=== PATIENT | female | born 1995 | race Caucasian/White ===

== ENCOUNTER 2018-10-07 23:32 | Observation (INO) | payer BC ==
[2018-10-07] MEDS ORDERED: NS 1,000 ML IV ONE (23:43)
--- NOTE | 2018-10-07 23:43 | EDPHY ---
H & P Stated Complaint: Syncopal episode twice at home, hit head Source: Patient Exam Limitations: No limitations - Personal History LMP (Females 10-55): 8-14 Days Ago Current Tetanus Diphtheria and Acellular Pertussis (TDAP): Yes - Medical/Surgical History Hx Asthma: No Hx Chronic Respiratory Disease: No Hx Diabetes: No Hx Cardiac Disease: No Hx Renal Disease: No Hx Cirrhosis: No Hx Alcoholism: No Hx HIV/AIDS: No Hx Splenectomy or Spleen Trauma: No Other PMH: Denies - Social History Smoking Status: Never smoked Time Seen by Provider: 10/07/18 23:39 HPI/ROS: 0139: Patient here for syncope. At this time was noted on her monitor heart rate went down to 30. This was captured on the monitor with rhythm strip a bradycardia. She was lying in bed resting when this happen. It recovered on its own and she is now 78 without any complaints. I notified the hospitalist service about the bradycardia. Will admit on telemetry monitoring. Dr. Martinez notified of the bradycardia recovered on its own. (Liam Bang) HPI: This is a 23-year-old female who presents with Chief Complaint: Syncopal episode twice at home, hit head Location: body Quality: Passed out x2 Duration: Lasting several seconds Signs and Symptoms: no fever, no nausea, no vomiting, no photophobia, no noise sensitivity, no neck stiffness, no ear pain, no tinnitus, no nasal congestion, no sinus pressure, no weakness, no radiation, no aura Timing: Acute, intermittent episodes Severity: Moderate Context: Patient is generally healthy, student at [employer], presents with sitting in her room around 8:00 p.m. This evening and started to feel dizzy and lightheaded. She reports that it lasted only a few seconds and then resolved. Then around 11:00 p.m. She was sitting at a bar drinking and alcoholic beverage x1 when she started to feel dizzy and lightheaded again. Friend at bedside reports that she slumped towards the right side and then fell off the stool. He reports that she was helped to the ground but did hit her head on the ground. Patient reports mild, constant, nonradiating pain in the right temporal area. She complains of a 6/10 headache. Not the worse headache of her life and no thunderclap symptoms. Friend reports that she was"out of it for a few seconds but then came around." Denies any seizure activity, tongue biting, incontinence. Patient reports that she ate and drank normally today. She reports that when she was younger she had a similar incidents of"passing out and went to the emergency room and and she was told that it was stressed. Denies any drug use. Patient denies any fever, cough, palpitations, lower extremity edema. No recent long distance travel. Modifying Factors: None Comment: ROS: A comprehensive 10 system review of systems is otherwise negative aside from elements mentioned in the history of present illness. MEDICAL/SURGICAL/SOCIAL HISTORY: Medical history: Generally healthy. Takes oral control pills. LMP 1-2 weeks ago. Surgical history: Denies Social history: Nonsmoker. Student at [employer]. Family history noncontributory. CONSTITUTIONAL: Extremely polite and cooperative young adult white female, awake and alert, no obvious distress HEENT: Small contusion noted in the right parietal scalp no active bleeding; no step-off and normocephalic, PERRL, EOMI. Nares patent; no rhinorrhea; no nasal mucosal edema. Tympanic membranes clear. Oropharynx clear, no exudate and moist pink mucosa. Airway patent. No lymphadenopathy. No meningismus. Cardiovascular: Normal S1/S2, regular rate, regular rhythm, without murmur rub or gallop. PULMONARY/CHEST: Symmetrical and nontender. Clear to auscultation bilaterally. Good air movement. No accessory muscle usage. ABDOMEN: Soft, nondistended, nontender, no rebound, no guarding, no peritoneal signs, no masses or organomegaly. No CVAT. EXTREMITIES: 2/2 pulses, strength 5/5, no deformities, no clubbing, no cyanosis or edema. NEUROLOGICAL: no focal neuro deficits. GCS 15. Cranial nerves 2-12 grossly intact. Normal xlkqid-dc-vlqw testing. Normal jsmm-vx-llhz testing. Speech normal. No reproduction of dizziness with Kadeem-Hallpike maneuver. SKIN: Warm and dry, no erythema. no rash. Good capillary refill. (Emi Alvarado) Constitutional: Initial Vital Signs Temperature (C) 36.8 C 10/07/18 23:34 Heart Rate 77 10/07/18 23:34 Respiratory Rate 17 10/07/18 23:34 Blood Pressure 107/75 10/07/18 23:34 O2 Sat (%) 99 10/07/18 23:34 O2 Delivery Mode Room Air Allergies/Adverse Reactions: No Known Allergies Allergy (Verified 10/08/18 08:51) Home Medications: Medication Instructions Recorded Herbals/Supplements -Info Only 1 ea PO DAILY 10/08/18 Ibuprofen [Motrin (*)] 200 mg PO DAILY PRN 10/08/18 Norethindrone-Ethinyl Estrad 1 each PO HS 10/08/18 [Cyclafem] Acetaminophen [Tylenol 325mg (*)] 650 mg PO Q4HRS PRN tab 10/09/18 oxyCODONE IR [Oxycodone Ir (*)] 5 mg PO Q4HRS PRN #20 tab 10/09/18 Medical Decision Making - Diagnostics EKG Interpretation: 12 lead EKG: Indication: Syncope Rhythm: Normal sinus rhythm, rate of 69 beats per minute [place]: Normal Intervals: Normal QRS: Normal ST segments: Normal INTERPRETATION: No acute ischemic changes The 12 lead EKG was interpreted by myself and with attending. (Emi Alvarado) ED Course/Re-evaluation: Vital signs reviewed and stable upon arrival. Placed on occupational therapy specialist. IV access, laboratory studies, urinalysis, EKG ordered Given 2 L normal saline EKG my read with attending shows normal sinus rhythm with a rate of 69 beats per minute but no acute ischemic changes. 0020: Called by radiologist, Dr. Rich who reports head CT scan shows no acute intracranial process. Radiology report states equivocal right parietal vertex, linear skull fracture. Contusion noted on right parietal scalp. Cervical CT scan shows straightening of the lordosis but no acute fracture, disc herniation. 0026: Notified by RN that boyfriend stepped out of the room and said the patient passed out again RN was at bedside and noted patient was alert and oriented x 4 with stable vital signs and no seizure activity. 0044: Spoke with radiologist Dr. Wright regarding the head CT scanned and he reports that it is not depressed and likely a normal variant. He said go by clinical exam which shows a contusion. 0048: Labs reviewed. No signs of leukocytosis/anemia/platelet dysfunction/CRIS/ elevated LFTs/electrolyte imbalance//VTE ETOH=57 ED decision to consult for admission for syncope and collapse. Spoke with hospitalist Dr. Martinez who kindly agrees to admit patient to provide further care. This patient was seen under the supervision of my secondary supervising physician. I evaluated care for this patient with attending. Discussed this patient with Dr. Bang who did see the patient. (Emi Alvarado) Differential Diagnosis: Syncope including but not limited to vasovagal syncope, arrhythmia, dehydration , and blood loss. (Emi Alvarado) - Data Points Laboratory Results: Laboratory Results 10/08/18 00:02 10/08/18 00:02 Medications Given: Discontinued Medications Acetaminophen (Tylenol) 1,000 mg PO EDNOW ONE Stop: 10/08/18 01:21 Last Admin: 10/08/18 01:21 Dose: 1,000 mg Acetaminophen (Tylenol) 650 mg PO Q4HRS PRN PRN Reason: Pain, Mild/Fever, Can Take PO Stop: 04/06/19 01:23 Last Admin: 10/08/18 19:25 Dose: 650 mg Bacitracin (Bacitracin 1000 Ml Irrigation) 50,000 units IRR ONCALL ONE Stop: 10/08/18 13:24 Last Admin: 10/08/18 18:00 Dose: Not Given Sodium Chloride (Ns) 1,000 mls @ 0 mls/hr IV ONCE ONE; Wide Open PRN Reason: Protocol Stop: 10/07/18 23:44 Last Admin: 10/08/18 00:26 Dose: 1,000 mls Sodium Chloride (Ns) 1,000 mls @ 0 mls/hr IV EDNOW ONE; Wide Open PRN Reason: Protocol Stop: 10/08/18 00:21 Last Admin: 10/08/18 00:27 Dose: 1,000 mls Sodium Chloride (Ns) 75 mls @ 0 mls/hr IV EDNOW ONE; KVO PRN Reason: Protocol Stop: 10/08/18 01:44 Last Admin: 10/08/18 01:45 Dose: 75 mls Cefazolin Sodium/Dextrose (Ancef) 100 mls @ 200 mls/hr IV ONCALL ONE PRN Reason: Protocol Stop: 10/08/18 13:52 Last Admin: 10/08/18 17:59 Dose: Not Given Sodium Chloride (Ns) 1,000 mls @ 0 mls/hr IV ONCALL ONE PRN Reason: TKO Stop: 10/08/18 13:24 Last Admin: 10/08/18 17:59 Dose: Not Given Ondansetron HCl (Zofran) 4 mg IVP Q4HRS PRN PRN Reason: Nausea/Vomiting, Can't Take PO Stop: 04/06/19 01:23 Last Admin: 10/09/18 08:12 Dose: 4 mg Oxycodone HCl (Oxycodone Ir) 5 mg PO Q4HRS PRN PRN Reason: Pain, Severe Able to Take PO Stop: 10/18/18 21:00 Last Admin: 10/09/18 04:20 Dose: 5 mg Point of Care Test Results: Chemistry 10/08/18 00:05 POC Troponin I 0.00 ng/mL ng/mL (0.00-0.08) Departure - Departure Disposition: [facility] Inpatient Acute Clinical Impression: Syncope and collapse, Bradycardia Contusion of parietal region of scalp Qualifiers: Encounter type: initial encounter Qualified Code(s): S00.03XA - Contusion of scalp, initial encounter Condition: Fair
[2018-10-08] MEDS ORDERED: NS 1,000 ML IV ONE ×2 (00:20→13:23)
[2018-10-08 00:45] LABS: PLATELET COUNT 260 10^3/uL (150-400)
[2018-10-08] MEDS ORDERED: ACETAMINOPHEN 500 MG TAB ONE (01:19)
[2018-10-08] MEDS ORDERED: ACETAMINOPHEN 500 MG TAB PO ONE (01:20)
[2018-10-08] MEDS ORDERED: ONDANSETRON DISINTEGRATING 4 MG TAB PO PRN (01:24)
[2018-10-08] MEDS ORDERED: ACETAMINOPHEN 325 MG TAB PO PRN (01:24)
[2018-10-08] MEDS ORDERED: NS IV ONE (01:43)
--- NOTE | 2018-10-08 04:35 | GHP ---
DATE OF ADMISSION: 10/08/2018 CHIEF COMPLAINT: Syncope x3. HISTORY OF PRESENT ILLNESS: A 23-year-old student with no past medical history presenting with syncope. Was in her room this evening at 8 p.m. and started to feel dizzy and "weird" and then awoke on her bed, unclear if she fell asleep or passed out. At 11 p.m. she went out for a drink with a friend and had 1 alcoholic beverage and felt "pako vu" with dizziness and lightheadedness, and slumped forward hitting her knees and then her forehead on the ground per friend's report. Complains of pain in the right temporal region with some swelling. Had 3rd syncopal episode in ER. Denies prodromal chest pain , palpitations, blurred vision or SOB. Worked out this morning without issue and ate normal meals. Normally exercises 5-6 days a week lifting weights or 20 minutes or running with no symptoms. No infectious symptoms,illicit drugs, or supplements. No insect bites ( ie.rickettsial infections) Had 10 second pauses on telemetry in the ER briefly then syncope, return to heart rate 80s to 90s. Per Dr. Montesinos's report, she said she had "passing out" episodes when she was younger and was told due to stress. REVIEW OF SYSTEMS: I completed a 10-point review of systems, negative except as noted in HPI. PAST MEDICAL HISTORY: None. PAST SURGICAL HISTORY: [place] teeth. FAMILY HISTORY: Father with hypertension. No sudden cardiac . SOCIAL HISTORY: She is a senior at studying math and economics. Occasional alcohol. No illicits or tobacco. MEDICATIONS: control. ALLERGIES: None. PHYSICAL EXAMINATION: VITAL SIGNS: Temperature 36.9, blood pressure 117/74, heart rate is in the 80s, respiration 18, 99% on room air. GENERAL: She is sleeping, but no acute distress. HEENT: PERRLA. Moist mucous membranes. Lump right temporal region. CV: Regular rate and rhythm. LUNGS: Clear. ABDOMEN: Soft, nontender, nondistended. Positive bowel sounds. : No Milner. MUSCULOSKELETAL: 5/5 upper and lower extremity strength. NEURO: 2 through 12 intact. PSYCH: Alert and oriented x3. LABS: WBC 5, hemoglobin 14, hematocrit 42, platelets 260. D-dimer is negative. Sodium 138, potassium 4.1, chloride 105, carbon dioxide 21, creatinine 0.8, glucose 86. LFTs within normal. TSH is pending. Negative troponin. Urine is negative. Blood alcohol 57. Urine tox negative. Cervical spine CT: No fracture. Head CT: No intracranial process. EKG personally reviewed, first-degree block, normal sinus rhythm. ASSESSMENT AND PLAN: 1. Syncope: 3x today. Not on any offending medications, utox negative. Joshua to the 30s in the ER with sinus pauses. TSH, echo pending. Consult Cardiology in the morning. 2. Alcohol use: BAL elevated. Counseled on cessation. 3. Skull fracture: linear, which shouldn't require intervention. 4. Diet: Regular. 5. Deep vein thrombosis prophylaxis: Low risk. 6. Disposition: Warrants observation admission given bradycardia, syncope requiring cardiology evaluation. /[id number]/MODL MTDD
[2018-10-08] MEDS ORDERED: ATROPINE SULFATE 1 MG/10 ML SYR ONE (08:33)
[2018-10-08] MEDS: ONDANSETRON 4 MG/2 ML VIAL IVP PRN (08:57)
--- NOTE | 2018-10-08 11:10 | GHP ---
DATE OF ADMISSION: 10/08/2018 INDICATION FOR ADMISSION: Syncope. HISTORY OF PRESENT ILLNESS: The patient is a pleasant, 23-year-old female who is a senior at , who was in her usual state of health until last evening around 8 p.m. She had an episode of feeling diz zy which was followed by syncope. She states she woke up on her bed and was unsure of the events darshana ding up to how she ended up on her bed. Later that evening around 11 p.m., she went out for a drink with her boyfriend. She had 1 alcoholic beverage, and she states she felt "pako vu" and briefly felt dizzy. This was followed by a witnessed syncopal event. Her boyfriend who was with her reports that she was talking normally, followed by a sentence that did not make sense, followed by rapid eyes rolling back in her head, and followed by l oss of consciousness. Both patient and boyfriend state that from feeling normal at baseline to compl ete syncope was no greater than 4 seconds. When she awoke she states within a few seconds she felt b ack to baseline. Both patient and boyfriend state that she has had between 5 and 7 further syncopal episodes through the course of the evening. She presented to [facility] for further evaluation. While here in the ER on telemetry, she had another identical episod e while on quality assurance monitor body. She had a brief few seconds onset of dizziness, followed by syncope. Th e property assessment monitor demonstrated a 12-second pause associated with syncope. This was preceded by a s hort several second period of decline in heart rate with P waves and then asystole with no P waves. This was followed by a junctional escape beat and then rapid return to sinus rhythm at approximately 100 beats per minute. Mari states that approximately 3 years ago as a freshman at [employer], she had an episode of non prodromal syncope while brushing her teeth. She states she awoke on the bathroom floor with no evidence of trauma. She was admitted to a hospital in [place] where she underwent an evaluation on tel emetry and complete 2D echocardiogram. She had no further syncopal episodes and was discharged home. She states she has been in her usual state of health until last evening with onset of syncopal even ts. Mari is on no medications with the exception of control pills. She does not use illicit drugs or marijuana. Urine drug screen was negative. She has no history of recent viral illness. In the last year, she was in [facility] approximately 13 months ago. She was in [place] earlier this year. She has not traveled outside the country. Haroon carbone [place] She has no history of Lyme disease. She has no history of tick-borne illnesses. She has never trave led to [place]. She has no known history of sarcoidosis or inflammatory disease process. She has no family history of underlying conduction system disease. REVIEW OF SYSTEMS: Currently, at the time of my exam, she is resting comfortably without complaint A 10-point review of systems is negative with the exception of syncope. PAST MEDICAL HISTORY: None. PAST SURGICAL HISTORY: [facility] teeth. FAMILY HISTORY: Father with a history of hypertension approximately 10 years ago. She has 2 younger siblings who are alive and well. Her aunts and uncles are all healthy. No family history of conduc tion system disorders. No one noted in the family with a pacemaker. MEDICATIONS ON ADMISSION: control pill. ALLERGIES: To medications, none. PHYSICAL EXAMINATION: VITAL SIGNS: Blood pressure 116/75, respiratory rate of 16, oxygen saturation 97% on room air, temperature of 36.9. GENERAL: She is awake, alert, oriented, appropriate. No bienvenido arent distress. NECK: There is no evidence of JVP or carotid bruits. LUNGS: Clear to auscultation bilaterally. CARDIAC: Exam is S1, S2. Regular rate and rhythm. No murmurs, rubs, or gallops. PM I is not displaced. ABDOMEN: Soft, nontender, nondistended. There is no pulsatile mass or abdomina l bruit. EXTREMITIES: No evidence of cyanosis, clubbing or edema. ECG performed October 07, 2018, at 2344 demonstrates sinus rhythm at 69 beats per minute with borderl ine right axis deviation. QT corrected interval of 414 milliseconds. WI interval normal at [address] of the head demonstrates no evidence of cervical fracture or dislocation. There was a comment und er impression of equivocal right parietal vertex linear skull fracture. This has been reviewed by [facility], who felt that this was a non issue and that there was no true skull fracture and a normal variant. Telemetry monitoring demonstrates sinus rhythm with a rapid decline in heart rate, followed by 12 sec onds of asystole, followed by junctional escape beat associated with syncope. She had a second pause as well with again rapid decline in sinus rhythm, followed by asystole. LABORATORY DATA: 1. White blood cell count 5.6, hemoglobin 14.2, hematocrit 42.9, platelets 260. 2. Comprehensive metabolic panel is normal. Glucose 86. TSH 5.74. Beta HCG negative. D-dimer neg ative at less than 0.27. Troponin negative at less than 0.012. 3. Urine drug screen negative. ETOH 57. The patient admits to a single alcoholic beverage. This i s corroborated by her boyfriend. IMPRESSION: The patient is a pleasant, 23-year-old, healthy, physically fit, [facility] [employer] student who is studying economics and math. She has a job with a [employer] waiting for her [employer] n she graduates from [employer] later this year. She has had multiple syncopal episodes since 8 p.m. last evening. Witnessed syncopal event on telemetry with a sinus arrest with 12-second pause associated with syncope. She does have a history of a non prodromal syncopal event 3 years ago with a negative workup. She has no exposures to tick-borne illnesses or any indication of underlying illnesses that could darshana d to conduction system abnormality such as sarcoidosis. Would recommend patient be admitted to the telemetry service with plan for complete 2D echocardiogram to be performed this morning. 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 I think her episode in 2014 w as her initial event. With witnessed syncope documented on telemetry of over 12 seconds with no rehan r underlying etiology, would recommend patient proceed with pacemaker. We will plan for consultation with Dr. De La Cruz for further evaluation. PLAN: 1. Admit to telemetry. 2. Pacer pads in place. 3. Atropine at bedside. 4. EP consultation today for pacemaker implantation. 5. Echocardiogram to be completed. 6. I have spoken at detail with the patient as well as both her parents regarding my concerns and fi ndings. /[id number]/MODL
--- NOTE | 2018-10-08 12:27 | ECHO ---
[email or web address] [address] [address] Main: [phone] Fax: [email or web address] Echocardiogram Name: RICHARD MCKINNON MR#: [id number] Study Date: 10/08/2018 Study Time: 10:43 AM Date of : 1995 Age: 23 year(s) Height: 172.7 cm (68 in.) Weight: 61.24 kg (135 lb.) BSA: 1.73 m2 Gender: Female Examination: Echo Indication: syncope X3; 12 second pause Image Quality: Adequate Contrast: Requested by: Kanika Martinez BP: 116 mmHg/65 mmHg Heart Rate: Rhythm: Indication: syncope X3; 12 second pause Procedure Staff Child Welfare Counselor: Darcy Crain [facility] Reading Physician: Lio Viera MD Requesting Provider: Conclusions: Normal size left ventricle. No LV hypertrophy. Normal global systolic LV function. EF is 62 %. No regional wall motion abnormality. Normal diastolic LV function. Normal size right ventricle. Normal RV function. The left atrium is normal in size. Normal appearing atrial septum. The right atrium is normal in size. The mitral valve is normal in appearance. The aortic valve is tri-leaflet. The tricuspid valve is normal in appearance and function. Normal size and course of the IVC. No pericardial effusion. Measurements: Chambers Valvular Assessment AV/MV Valvular Assessment TV/PV Normal Normal Normal Name Value Range Name Value Range Name Value Range Ao Bonnie (MM): 3.0 cm (2.2 cm-3.7 AV Vmax: 1.18 m/s (1 m/s-1.7 PV Vmax: 0.88 m/s (0.6 m/s-0.9 cm) m/s) m/s) IVSd (2D): 0.6 cm (0.6 cm-1.1 AV maxP mmHg ( - ) PV PGmax: 3 mmHg ( - ) cm) LVOT Vmax: 0.85 m/s (0.7 m/s-1.1 LVDd (2D): 4.3 cm (3.9 cm-5.3 m/s) cm) MV E Vmax: 0.91 m/s ( - ) LVDs (2D): 2.8 cm (2.1 cm-4 MV A Vmax: 0.65 m/s ( - ) cm) MV E/A: 1.40 ( - ) LVPWd (2D): 0.7 cm ( - ) Patient: RICHARD MCKINNON Study Date: 10/08/2018 Page 1 of 2 10:43 AM LVEF (BP): 62 % (>=55 %) RVDd(2D): 3.0 cm (1.9 cm-3.8 cmmm) Continued Measurements: Chambers Valvular Assessment AV/MV Name Value Name Value LADs: 2.5 cm MV DecTime: 208 m/s LADs Lon.8 cm MV E/E' Septal: 9.80 LA Area: 15.4 cm2 MV E/E' Lateral: 4.90 LA Volume: 43 ml LA Volume Index: 24.9 ml/m2 TAPSE: 2.0 cm RA Area: 10.0 cm2 Additional Vessels Name Value Ao Ascendin.6 cm Findings: Left Ventricle: Normal size left ventricle. No LV hypertrophy. Normal global systolic LV function. EF is 62 %. No regional wall motion abnormality. Normal diastolic LV function. Right Ventricle: Normal size right ventricle. Normal RV function. Left Atrium: The left atrium is normal in size. Normal appearing atrial septum. Right Atrium: The right atrium is normal in size. Mitral Valve: The mitral valve is normal in appearance. Trivial mitral valve regurgitation. No mitral stenosis is present. Aortic Valve: The aortic valve is tri-leaflet. There is no aortic valve regurgitation. No aortic valve stenosis is present. Tricuspid Valve: The tricuspid valve is normal in appearance and function. Trivial tricuspid valve regurgitation. Pulmonary artery pressure is not obtained due to inadequate TR jet. Pulmonic Valve: The pulmonic valve is normal in appearance. There is no pulmonic regurgitation seen. Aorta: Normal size aortic root measuring 3.0 cm. Normal size ascending aorta measuring 2.6 cm. IVC: Normal size and course of the IVC. Pericardium: No pericardial effusion. (No Signature Object) Patient: RICHARD MCKINNON Study Date: 10/08/2018 Page 2 of 2 10:43 AM [id number]
--- NOTE | 2018-10-08 13:01 | HOSPPROG ---
Hospitalist Progress Note Assessment/Plan: 23-year-old female with no past medical history admitted after numerous syncopal episodes and noted to have a 12 second pause on telemetry Syncope- I discussed the case with Cardiology. Appears plan is for pacer placement. I reviewed her telemetry strip which shows a 10-12 second pause. Labs and exam are unremarkable. -pacer pads at bedside -atropine if needed -cardiology to see -telemetry prophylaxis- SCDs, ambulate Fluids- NPo, IV saline Lytes- WNL Nutrition- NPO Cor- Full Dispo- observation ICU for syncope I spent over 35 minutes of critical care time on the management of this patient with over half spent on direct patient care. Subjective: feels fine currently. No chest pain. or other complaints. Objective: Vital Signs Temp Pulse Resp BP Pulse Ox 36.9 C 74 13 102/63 98 10/08/18 11:22 10/08/18 12:00 10/08/18 12:00 10/08/18 12:00 10/08/18 12:00 - Physical Exam Constitutional: no apparent distress, appears nourished, not in pain Eyes: PERRL, anicteric sclera, EOMI Ears, Nose, Mouth, Throat: moist mucous membranes, hearing normal, ears appear normal, no oral mucosal ulcers Cardiovascular: regular rate and rhythym, no murmur, rub, or gallop Respiratory: no respiratory distress, no rales or rhonchi, clear to auscultation Gastrointestinal: normoactive bowel sounds, soft, non-tender abdomen, no palpable masses Genitourinary: no bladder fullness, no bladder tenderness, no renal bruits Skin: no rashes or abrasions, no fluctuance, no induration Musculoskeletal: full muscle strength, no muscle tenderness, normal joint ROM Neurologic: AAOx3, sensation intact bilaterally Psychiatric: interacting appropriately, not anxious, not encephalopathic, thought process linear Lymph, Heme, Immunologic: no cervical LAD, no supraclavicular LAD ICD10 Worksheet Patient Problems: Problems Problem Status Onset Bradycardia Acute Contusion of parietal region of scalp Acute Syncope and collapse Acute
--- NOTE | 2018-10-08 13:22 | PDGENHP ---
History & Physical Chief Complaint: Recurrent syncope associated with pauses up to 12 seconds History of Present Illness: First episode of syncope occurring 3 years ago. No recurrence until last night. Since then, she has experienced 7-8 syncopal events preceeded by roughly 4 seconds of lightheadedness and "pako vu." Telemetry during these events demonstrates a rapid decline in HR followed by asystole up to 12 seconds followed by a junctional escape rhythm and return to NSR. She has otherwise been in her usual state of health without identifiable reversible causes of her symptoms (see full H&P). Relevant Physical Exam: General: A&Ox4, no apparent distress. Respiratory: CTA. Cardiac: Regular rate and rhythm, S1, S2, external pacer pads in place Cardiorespiratory Assessment: Risks and benefits of dual-chamber PPM reviewed in detail with patient and her family. Alternative options include watchful waiting vs. medical management of her symptoms. Mari and her parents would like to proceed with PPM implant today.
[2018-10-08] MEDS ORDERED: BACITRACIN IRRIGATION/NS 50,000 UNITS/1,000 ML BTL IRR ONE (13:23)
[2018-10-08] MEDS ORDERED: ceFAZolin 2 GM/DEXTROSE 100 ML IV ONE (13:23)
--- NOTE | 2018-10-08 14:16 | GCON ---
CONSULTATION/HISTORY AND PHYSICAL DATE OF CONSULTATION: 10/08/2018 Patient seen in the emergency department in room 6 at 0934 on 10/08/2018. CHIEF COMPLAINT: Syncope. HISTORY OF PRESENT ILLNESS: The patient is a 23-year-old female who is a senior at the [employer]. She was in her usual state of health until last evening about 8 p.m. She had an episode where she was feeling dizzy. It was followed by an episode of syncope. She woke up on her b ed and was unsure of the events leading up to how she ended up there. Later last evening at about 11 p.m., she went for a drink with her boyfriend. She had 1 alcoholic beverage, and she states she fel t the pako vu type symptoms and felt dizzy. This was followed by a witnessed syncopal episode. Her boyfriend was with her, reports that she was talking normally following the incident as well. Both t he patient and the boyfriend state that for a few seconds, she was out, and then she would go back to baseline. She had subsequently 5-7 further syncopal episodes through the course of the evening. Haroon carbone presented to the Emergency Department at [facility] for evaluation. While she was in the ER, she had some identical episodes on the phototypesetting equipment monitor, and there were brief seconds where she was dizzy, followed by syncope. There was one 12-second pause associated with the syncope on he r telemetry monitoring. She had a CT scan of her head, and this showed a questionable skull fracture . She does have a history of going to [employer] when she was a freshman and had a syncopal e pisode at that time while brushing her teeth. She is on no other medications, except control. She denies any illicit drug use or marijuana. Her urine drug screen was negative. Currently, she i s awake and alert, oriented. She was seen both by me and Dr. Kasper. REVIEW OF SYSTEMS: A complete 10-point review of systems was reviewed and negative, otherwise noted in HPI. PAST MEDICAL HISTORY: None. PAST SURGICAL HISTORY: [place] teeth removal. MEDICATIONS: Prior to admission, control. ALLERGIES: No known drug allergies. FAMILY HISTORY: Has a father with history of hypertension approximately 10 years ago. Has 2 younger siblings who are alive and well, an aunt and uncle who are healthy, and no family history of any hea rt issues. IMMUNIZATIONS: Reported up to date. No travel. PHYSICAL EXAMINATION: GENERAL: This is an awake, alert, and oriented female in no acute distress. VITAL SIGNS: Most recent vital signs, blood pressure 116/75, respiratory rate of 16, 97% on room air , temperature 36.9. HEENT: Head is normocephalic, atraumatic. Pupils are equal, round, and reactiv e to light. NECK: Soft and supple. No midline tenderness. Full range of motion in flexion, extens ion, lateral bending and rotation. RESPIRATORY: Deferred. CARDIAC: Deferred. ABDOMEN: Soft, non tender. No peritoneal signs. AND RECTAL: Deferred. NEURO: Patient is awake, alert, and orient ed to name, place, location, date, time, and situation. Memory is intact to immediate, past, and cur rent events. Speech: No aphasia, dysarthria, or dysphonia. Cranial nerves 2-12 are grossly intact. Motor: Patient has 5/5 strength in all muscle groups of bilateral upper and lower extremities and equal. MEDICAL DECISION-MAKING/DIAGNOSTIC STUDIES: CT scan of the head demonstrates no acute cervical spine fracture or dislocation. There was a comment of an equivocal right parietal vertex linear skull fra cture. This was reviewed with Dr. Kasper, and this was felt to be a non-issue at this time. Laboratory tests were obtained that showed a white count of 5.61, H and H of 14.2 and 42.9, with a pl atelet count of 260. Coags, D-dimer less than 0.27. Chemistry shows a sodium 138, potassium 4.1, ch loride 105, CO2 21, BUN 17, a creatinine of 0.8, and a glucose of 86. Urine drug screen was negative . Toxicology was negative at 12:02 a.m. She had an alcohol level of 5.7. IMPRESSION: 1. Syncopal episode. 2. Equivocal skull fracture. 3. Multiple falls. PLAN/DISCUSSION: The patient is a 23-year-old female who will be admitted to the cardiology service. We were consulted for an equivocal skull fracture. Dr. Kasper did review this. This was reviewed with the patient as well and recommended no further treatment for this. She will be admitted to the cardiology service and will likely need further interventional treatments from their standpoint. All questions and concerns were answered. Neurosurgery will sign off at this time. Please call or cons ult us if any questions or problems arise. /[id number]/MODL
[2018-10-08 14:20] LABS: INR 1.17 (0.83-1.16); PROTIME(PATIENT) 15.1 SEC (12.0-15.0)
[2018-10-08] MEDS ORDERED: IOPAMIDOL (ISOVUE-300) 100 ML BTL ONE (15:29)
[2018-10-08] MEDS ORDERED: BUPIVACAINE 0.75% 10 ML SDV ONE (15:29)
[2018-10-08] MEDS ORDERED: LIDOCAINE 1% 300 MG/30 ML SDV ONE (15:29)
--- NOTE | 2018-10-08 15:59 | PDANEPAE ---
ANE History of Present Illness sinus pauses s/f pacemaker ANE Past Medical History - Cardiovascular History Hx Arrhythmias: Yes - Pulmonary History Hx Oxygen in Use at Home: No Hx Sleep Apnea: No - Endocrine History Hx Diabetes: No ANE Review of Systems Review of Systems: - Exercise capacity Exercise capacity: >=4 METS ANE Patient History - Allergies Allergies/Adverse Reactions: No Known Allergies Allergy (Verified 10/08/18 08:51) - Home Medications Home medications: home medication list seen and reviewed Home Medications: Herbals/Supplements -Info Only 1 ea PO DAILY 10/08/18 [Last Taken Unknown] Ibuprofen [Motrin (*)] 200 mg PO DAILY PRN 10/08/18 [Last Taken Unknown] Norethindrone-Ethinyl Estrad [Cyclafem] 1 each PO HS 10/08/18 [Last Taken ] - NPO status NPO Status: no food or drink >8 hours - Anes Hx Anes Hx: no prior problems - Smoking Hx Smoking Status: Never smoked - Alcohol Use Alcohol Use: None - Family Anes Hx Family Anes Hx: none ANE Labs/Vital Signs - Labs Result Diagrams: 10/08/18 00:02 10/08/18 00:02 - Vital Signs Blood Pressure: 110/63 Heart Rate: 67 Respiratory Rate: 21 O2 Sat (%): 96 Height: 172.72 cm Weight: 61.235 kg ANE Physical Exam - Airway Neck exam: FROM Mallampati Score: Class 1 Mouth exam: normal dental/mouth exam - Pulmonary Pulmonary: no respiratory distress - Cardiovascular Cardiovascular: regular rate and rhythym - ASA Status ASA Status: I ANE Anesthesia Plan Anesthesia Plan: general endotracheal anesthesia (GA with ETT vs. LMA vs Mask/ Propofol), MAC
[2018-10-08] MEDS ORDERED: fentaNYL 100 MCG/2 ML INJ ONE (16:06)
[2018-10-08] MEDS ORDERED: PROPOFOL/EMULSION 500 MG/50 ML BOTTLE IV ONE ×2 (16:07→16:42)
[2018-10-08] MEDS ORDERED: DEXAMETHASONE 4 MG/ML VIAL IVP PRN (17:32)
[2018-10-08] MEDS ORDERED: LR 500 ML IV PRN (17:32)
[2018-10-08] MEDS ORDERED: oxyCODONE IR 5 MG TAB PO PRN (17:32)
[2018-10-08] MEDS ORDERED: ONDANSETRON 4 MG/2 ML VIAL IVP PRN (17:32)
[2018-10-08] MEDS ORDERED: PHENYLEPHRINE HCL 100 MCG/ML SYR IVP PRN (17:32)
[2018-10-08] MEDS ORDERED: MEPERIDINE 25 MG/0.5 ML AMP IVP PRN (17:32)
[2018-10-08] MEDS ORDERED: NALOXONE HCL 0.4 MG/ML INJ IVP PRN (17:32)
[2018-10-08] MEDS ORDERED: fentaNYL 100 MCG/2 ML INJ IVP PRN (17:32)
[2018-10-08] MEDS ORDERED: ACETAMINOPHEN 500 MG TAB PO PRN (17:32)
[2018-10-08] MEDS ORDERED: ALBUTEROL 3 ML DEYVIAL IH PRN (17:32)
[2018-10-08] MEDS ORDERED: METOCLOPRAMIDE 10 MG/2 ML VIAL IVP PRN (17:32)
[2018-10-08] MEDS ORDERED: PROMETHAZINE HCL 25 MG/ML INJ IVP PRN (17:32)
--- NOTE | 2018-10-08 17:34 | POSTANESTH ---
Post Anesthetic Evaluation Cardiovascular Status: Normal, Stable Respiratory Status: Normal, Stable Level of Consciousness/Mental Status: Can Participate in Eval, Moderately Sleepy Pain Control: Adequate, Prn Tx Ordered Nausea/Vomiting Control: Adequate, Prn Tx Ordered Complications Possibly Related to Anesthesia: None Noted
[2018-10-08] MEDS: oxyCODONE IR 5 MG TAB PO PRN (21:27)
--- NOTE | 2018-10-08 23:17 | CPEKG ---
Test Reason : OPEN Blood Pressure : / mmHG Vent. Rate : 069 BPM Atrial Rate : 067 BPM P-R Int : 144 ms QRS Dur : 076 ms QT Int : 386 ms P-R-T Axes : 083 091 070 degrees QTc Int : 414 ms Sinus rhythm Borderline right axis deviation Confirmed by Iqra Sprague ([id number]) on 10/08/2018 11:16:54 PM Referred By: Confirmed By:Iqra Sprague
[2018-10-09] MEDS: oxyCODONE IR 5 MG TAB PO PRN (04:20)
[2018-10-09 04:32] LABS: PLATELET COUNT 198 10^3/uL (150-400)
[2018-10-09 07:08] VITALS: BP 113/61
[2018-10-09] MEDS: ONDANSETRON 4 MG/2 ML VIAL IVP PRN (08:12)
--- NOTE | 2018-10-09 09:52 | CPEKG ---
Test Reason : OPEN Blood Pressure : / mmHG Vent. Rate : 065 BPM Atrial Rate : 068 BPM P-R Int : 151 ms QRS Dur : 079 ms QT Int : 410 ms P-R-T Axes : 084 092 053 degrees QTc Int : 427 ms Atrial-paced complexes Borderline right axis deviation Confirmed by Ranjith Schneider ([id number]) on 10/09/2018 9:52:36 AM Referred By: Confirmed By:Ranjith Schneider
--- NOTE | 2018-10-09 09:56 | CPEKG ---
Test Reason : OPEN Blood Pressure : / mmHG Vent. Rate : 065 BPM Atrial Rate : 065 BPM P-R Int : 145 ms QRS Dur : 076 ms QT Int : 386 ms P-R-T Axes : 094 090 044 degrees QTc Int : 402 ms Atrial-paced complexes Confirmed by Ranjith Schneider ([id number]) on 10/09/2018 9:55:26 AM Referred By: Confirmed By:Ranjith Schneider
--- NOTE | 2018-10-09 10:10 | EPPROC ---
Electrophysiology Procedure Note: Procedure date 09/07/19 PROCEDURE PERFORMED: 1. Implantation of an A/V Pacemaker 2. Subclavian vein angiography 3. Fluoroscopy INDICATION: Recurrent syncope, up to 12 s sinus pause without warning while prone Patient and family do not want to attempt medical therapy PROCEDURE NOTE: Patient presented to the cardiac catheterization laboratory in a fasting, post absorptive state . Dr. Verde administered sedation. The left infraclavicular area was prepped and draped in the usual sterile fashion. Lidocaine plus bupivacaine was used for local anesthesia. Left subclavian venography was performed by injection of iodinated contrast into the left antecubital vein. This was done to assure patency of the vein and also to assess for any anatomical aberrations. Using a combination of blunt and sharp dissection and electrocautery, the dissection was carried down to the prepectoral fascia. A pocket was made in this anatomical plane. All bleeding was controlled with electrocautery. The pocket was packed with gauze soaked in antibiotic solution. Fluoroscopy was utilized during the entire procedure for venous access and placement of the leads. Using a direct stick technique the left extrathoracic axillary vein was accessed with 2 sticks using the modified Seldinger technique. Placement of the guidewires into the venous system was confirmed by low-pressure blood return and also by visualizing the guidewires advancing into the inferior vena cava. A purse string suture was applied around the guidewires. Two #7 [place] Islander sheaths were advanced under fluoroscopic guidance over the guidewire. An active fixation ventricular lead was advanced into the right ventricular apex and screwed in place. An active fixation atrial lead was advanced into the right atrial appendage and screwed in place. The peel away sheaths were removed. Pacing thresholds, sensing parameters and lead impedances were measured. There was no diaphragmatic stimulation at maximum output. The leads were sutured to the prepectoral fascia with 3 nonabsorbable sutures each. The pocket was again inspected for any bleeding. The leads were attached to the pacemaker securely. The pacemaker was inserted into the pocket and secured in place with a nonabsorbable suture. Fluoroscopy was performed in [place] and MALAY planes to verify right-sided placement of the leads. Also fluoroscopy of the pacemaker pocket was performed. The pacemaker pocket was closed in 3 layers with absorbable monocryl sutures and ana laura. Appropriate dressing was applied. The patient left the cardiac catheterization laboratory in stable condition. Serial Numbers: 1. Device: Biotronik Edora 8 DRT SN [id number] 2. Atrial Lead: Biotronik Solia S 45 SN [id number] 3. Ventricular Lead: Biotronik Solia S 53 SN [id number] Stimulation Thresholds & Impedance Measurements: 1. Atrial Lead P 2.2 mV 526 ohm 0.4 V 0.4 ms 2. Ventricular Lead R 7.5 mV 643 ohm 0.6 V 0.4 ms Joshua Pacing Parameters 1. Pacing mode: DDD-CLS 2. Lower rate: 60ppm 3. Upper tracking rate: 130 ppm 4. Upper sensor rate: 130 ppm Patient Problems: Problems Problem Status Onset Pacemaker Acute Syncope and collapse Acute Contusion of parietal region of scalp Acute Bradycardia Acute
--- NOTE | 2018-10-09 16:44 | HOSPPROG ---
Hospitalist Progress Note Assessment/Plan: 23-year-old female with no past medical history admitted after numerous syncopal episodes and noted to have a 12 second pause on telemetry Syncope- -s/p PPM placement -Post op care -will f/u with Cardiology -Pain control/mgmt: added pain meds to the pt's discharge meds per her request s/p fall Skull Fracture: seen and cleared by Neurosurgery. No additional f/u is needed prophylaxis- SCDs, ambulate Fluids- NPo, IV saline Lytes- WNL Nutrition- NPO Cor- Full Dispo- Ok to d/c from medical perspective Subjective: no sob. no n/v. Wants home Oxycontin for discharge. D/c order has already been placed. Objective: Vital Signs Temp Pulse Resp BP Pulse Ox 36.6 C 70 14 113/61 95 10/09/18 07:05 10/09/18 07:05 10/09/18 07:05 10/09/18 07:05 10/09/18 07:05 Laboratory Results 10/09/18 04:00 10/09/18 04:00 10/08/18 10/09/18 10/10/18 05:59 05:59 05:59 Intake Total 400 Balance 400 PT 15.1 SEC (12.0-15.0) H 10/08/18 14:00 INR 1.17 (0.83-1.16) H 10/08/18 14:00 - Physical Exam Constitutional: no apparent distress Eyes: PERRL Ears, Nose, Mouth, Throat: moist mucous membranes, hearing normal Cardiovascular: regular rate and rhythym, No edema Respiratory: no respiratory distress, no rales or rhonchi, clear to auscultation Gastrointestinal: normoactive bowel sounds, soft, non-tender abdomen Skin: warm Neurologic: AAOx3 Psychiatric: interacting appropriately, not anxious, not encephalopathic Lymph, Heme, Immunologic: No petechiae ICD10 Worksheet Patient Problems: Problems Problem Status Onset Bradycardia Acute Contusion of parietal region of scalp Acute Pacemaker Acute Syncope and collapse Acute
--- NOTE | 2018-10-09 17:50 | GDS ---
ADMISSION DIAGNOSES: Syncope. DISCHARGE DIAGNOSES: Recurrent syncope status post dual-chamber permanent pacemaker. PROCEDURES PERFORMED DURING HOSPITALIZATION: 1. Electrocardiogram. 2. Echocardiogram. 3. Head CT. 4. Cervical spine CT. 5. Implant of permanent pacemaker. HOSPITAL COURSE: Patient presented to the emergency department October 07, 2018 with symptoms of rec urrent syncope. These episodes were preceded by about 4 seconds of lightheadedness and a "pako vu fe eling." She had several recurrent episodes on telemetry in the Emergency Department, which demonstra grisel a sudden drop in heart rate followed by asystole for up to 12 seconds. This was followed by a re turn of a junctional rhythm and finally by return of her normal sinus rhythm. She had a total of 7 o r 8 syncopal episodes within a 12 hour period. She underwent implant of a dual-chamber permanent pac emaker with Dr. Wes De La Cruz yesterday, October 08 without any intra procedure complications. She has done very well in the postprocedure setting without any recurrent syncope or other concerning symptom s. She is appropriate and stable for discharge home today. PHYSICAL EXAMINATION: GENERAL: She is alert and oriented x4. No apparent distress. VITAL SIGNS: B lood pressure 122/69, heart rate 67, SpO2 95% on room air. Respiratory rate 16, temp 36.6 degrees [place] ls[place]. RESPIRATORY: Lungs are clear to auscultation. No adventitious breath sounds. CARDIAC: Norm al S1, S2, no S3, S4, or murmurs. Rhythm is regular. ABDOMEN: Normoactive bowel sounds times all 4 quadrants, no masses or tenderness. ABDOMEN: Soft. SKIN: [place], warm and dry without cyanosis, club anel, or peripheral edema. Left pectoral incision site has a clean and dry dressing in place without evidence of hematoma, redness, or oozing to this site. EXTREMITIES: Pulses 2+ bilaterally. No melchor a. LABORATORY STUDIES: Drawn today. CBC and BMP are stable. PROCEDURES: Implant of a dual-chamber permanent pacemaker as described above. Preprocedure echocardiogram was unremarkable without valvular disease and with normal systolic and di astolic function. Cervical spine CT and head CT during this hospitalization were also unrevealing. DISCHARGE DISPOSITION: Patient will be discharged home in stable condition. She is under activity i nstructions as below. DISCHARGE MEDICATIONS: Please see discharge medication reconciliation sheet for full details. DISCHARGE INSTRUCTIONS: Post pacemaker instructions reviewed with patient and her family in detail. We discussed activity restrictions including limited arm mobility without lifting above the level of the shoulder for the next 6 weeks. She will avoid submerged bathing until her incision is healed. She will continue to follow up in our device clinic and will have a wound check in 1 week. At the ti me of discharge, patient and family verbalized understanding of all discharge instructions without qu estions or concerns. She has a followup visit scheduled on October 14. She will contact the clinic with any new or concerning symptoms prior to her upcoming visit. Greater than 60 minutes spent on this discharge. /[id number]/MODL
== END 2018-10-09 12:25 | disposition home or self-care (01) ==
LOC: F2N 10-08 11:09 → F2W 10-08 17:04
PROVIDERS: ADMIT Internal Medicine; ATTEND Internal Medicine
DX: R00.1 Bradycardia, unspecified (principal); R55 Syncope and collapse; S00.03XA Contusion of scalp, initial encounter; W07.XXXA Fall from chair, initial encounter; Y92.511 Restaurant or cafe as the place of occurrence of the external cause; Y90.2 Blood alcohol level of 40-59 mg/100 ml; Z72.89 Other problems related to lifestyle; E86.0 Dehydration
CPT/HCPCS: 33208; 33225; 70450; 71045; 71046; 72125; 92523; 93005; 93306; 96361; 96374; 96376; 99285; G0378; 80305; 84484-ER; C1785; C1898; G0480; J0461; J0690; J2405; J2704; J3010; Q9967